=== PATIENT | male | born 1955 | race American Indian/Alaskan Native ===

== ENCOUNTER 2017-06-01 17:14 | Emergency (ER) | payer SELFPAY ==
[2017-06-01 17:23] VITALS: BP 151/99
--- NOTE | 2017-06-01 19:47 | Emergency Department Report ---
ED General Adult HPI - General Chief complaint: Puncture Wound Stated complaint: RIGHT SIDE CHEST/ABDOMINAL PAIN Time Seen by Provider: 06/01/17 19:40 Source: patient Mode of arrival: Ambulatory Limitations: No Limitations - History of Present Illness Initial comments: Patient is a 62-year-old malesignificant past medical history who presents with a right flank rash. Patient's pain is a 6 out of 10 as a burning type of pain recurred one day ago while he was playing with his dog. Patient denies having any nausea or vomiting or any damage or trauma to his flank. Patient has had a history of chickenpox. Patient denies having any fever or fatigue. Nothing makes the pain better and nothing makes it worse. - Related Data Previous Rx's Medication Instructions Recorded Last Taken Type Diclofenac Sodium [Voltaren] 100 gm TP Q6H #1 gel..gram. 06/01/17 Unknown Rx Valacyclovir HCl [Valtrex] 1,000 mg PO TID #21 tablet 06/01/17 Unknown Rx Allergies Allergy/AdvReac Type Severity Reaction Status Date / Time No Known Allergies Allergy Verified 06/01/17 17:20 ED Review of Systems ROS: Stated complaint: RIGHT SIDE CHEST/ABDOMINAL PAIN Other details as noted in HPI Constitutional: denies: chills, fever Eyes: denies: eye pain, eye discharge, vision change ENT: denies: ear pain, throat pain Respiratory: denies: cough, shortness of breath, wheezing Cardiovascular: denies: chest pain, palpitations Endocrine: no symptoms reported Gastrointestinal: denies: abdominal pain, nausea, diarrhea Genitourinary: denies: urgency, dysuria Musculoskeletal: denies: back pain, joint swelling, arthralgia Skin: rash. denies: lesions Neurological: denies: headache, weakness, paresthesias Psychiatric: denies: anxiety, depression Hematological/Lymphatic: denies: easy bleeding, easy bruising ED Past Medical Hx - Past Medical History Previous Medical History?: No - Surgical History Past Surgical History?: No - Social History Smoking Status: Never Smoker Substance Use Type: None - Medications Home Medications: Home Medications Medication Instructions Recorded Confirmed Last Taken Type Diclofenac Sodium [Voltaren] 100 gm TP Q6H #1 gel..gram. 06/01/17 Unknown Rx Valacyclovir HCl [Valtrex] 1,000 mg PO TID #21 tablet 06/01/17 Unknown Rx ED Physical Exam - General Limitations: No Limitations General appearance: alert, in no apparent distress - Head Head exam: Present: atraumatic, normocephalic - Eye Eye exam: Present: normal appearance - ENT ENT exam: Present: mucous membranes moist - Neck Neck exam: Present: normal inspection - Respiratory Respiratory exam: Present: normal lung sounds bilaterally. Absent: respiratory distress - Cardiovascular Cardiovascular Exam: Present: regular rate, normal rhythm. Absent: systolic murmur, diastolic murmur, rubs, gallop - GI/Abdominal GI/Abdominal exam: Present: soft, other (grouped base rash with vesicles in a dermatomal patern on the right flank. ) - Rectal Rectal exam: Present: deferred - Extremities Exam Extremities exam: Present: normal inspection - Back Exam Back exam: Present: normal inspection - Neurological Exam Neurological exam: Present: alert, oriented X3 - Psychiatric Psychiatric exam: Present: normal affect, normal mood - Skin Skin exam: Present: warm, dry, intact, normal color. Absent: rash ED Course Vital Signs 06/01/17 17:20 Temperature 98.3 F Pulse Rate 75 Respiratory 16 Rate Blood Pressure 151/99 O2 Sat by Pulse 98 Oximetry ED Medical Decision Making - Medical Decision Making Chief medical diagnosis: Herpes zoster Differential medical diagnosis: Cellulitis, neuropathy I will send patient home with Valtrex and gabapentin. Discussed outpatient patient agrees with plan. Additional verbal discharge instructions were given. Critical care attestation.: If time is entered above; I have spent that time in minutes in the direct care of this critically ill patient, excluding procedure time. ED Disposition Clinical Impression: Right-sided chest pain Herpes zoster Qualifiers: Herpes zoster complications: without complications Qualified Code(s): B02.9 - Zoster without complications Disposition: DC-01 TO HOME OR SELFCARE Is pt being admited?: No Does the pt Need Aspirin: No Condition: Stable Instructions: Herpes Zoster (ED) Prescriptions: Diclofenac Sodium [Voltaren] 100 gm TP Q6H #1 gel..gram. Valacyclovir HCl [Valtrex] 1,000 mg PO TID #21 tablet
== END 2017-06-01 20:05 | disposition home or self-care (01) ==
LOC: ED 17:14
DX: R07.89 Other chest pain (principal); B02.9 Zoster without complications
CPT/HCPCS: 99282